=== PATIENT | female | born 1940 | race Caucasian/White ===

== ENCOUNTER 2023-10-24 11:08 | Day surgery (SDC) | payer MEDICARE ==
[~2023-10-24] VITALS: Ht 157.5 cm; Wt 60.6 kg
[2023-10-24] VITALS (9 sets, daily range): BP systolic 126–172; BP diastolic 58–88; PULSE 67–81; RESP 10–39; TEMP 98.2; O2SAT 96–100
[~2023-10-24 11:08] MED LIST: ASPI-1264 PO; BIFI4CAP PO; CALC-336 PO; CHOL2000 PO; DENO60DI SQ; LANS15CA14 PO; NOR5T PO; VALS160T2 PO
[2023-10-24] MEDS ORDERED: METO50TA7 PO (11:49)
[2023-10-24] MEDS ORDERED: SOTA80TA46 PO (11:49)
[2023-10-24] MEDS ORDERED: APIX5TAB3 PO (11:49)
[2023-10-24] MEDS ORDERED: CALC-1050 (11:49)
[2023-10-24] MEDS ORDERED: PANT-47 PO (11:49)
[2023-10-24] MEDS ORDERED: TELM80TA9 PO (11:49)
[2023-10-24] MEDS: fentaNYL/PF 50MCG/1 ML 2ML syringe IV ONE (12:44)
[2023-10-24] MEDS: normal saline 1000ml 1,000 ML IV SCH (12:44)
[2023-10-24] MEDS: MIDAZolam 1mg/ml 10ml vial IV ONE (12:44)
== END 2023-10-24 14:00 | disposition home or self-care (01) ==
LOC: SSTAY O 11:08
PROVIDERS: ATTEND Internal Medicine Interventional Cardiology
DX: I48.91 Unspecified atrial fibrillation (principal); I48.92 Unspecified atrial flutter; R94.31 Abnormal electrocardiogram [ECG] [EKG]; I10 Essential (primary) hypertension; E78.00 Pure hypercholesterolemia, unspecified; I35.0 Nonrheumatic aortic (valve) stenosis; G62.9 Polyneuropathy, unspecified; Z86.711 Personal history of pulmonary embolism; Z86.718 Personal history of other venous thrombosis and embolism; Z79.01 Long term (current) use of anticoagulants; Z79.899 Other long term (current) drug therapy; Z88.8 Allergy status to other drugs, medicaments and biological substances
CPT/HCPCS: 92960; 93005; J2250; J3010; J7030